=== PATIENT | male | born 2005 ===

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

== ENCOUNTER → 2025-06-22 | Emergency (ER) | payer MEDICAID ==
[~2025-06-22] VITALS: Ht 172.7 cm; Wt 68.0 kg
[~2025-06-22] MED LIST: ACET-6 PO; CEPH500T PO; SODIUM CHLORIDE 0.9% 2,000 ML IV ONE
[2025-06-22 02:32] VITALS: BP 123/73; PULSE 77; RESP 16; TEMP 99.5; O2SAT 99
[2025-06-22 03:38] LABS: Urine Protein, UAD Negative (Negative)
[2025-06-22 03:56] LABS: Amphetamine Screen, Urine Neg (NEGATIVE); Barbiturate Scree,Urine Neg (NEGATIVE); Benzodiazephine Screen, Urine Neg (NEGATIVE); Cannabinoid Screen, Urine Pos (NEGATIVE); Cocaine Screen, Urine Neg (NEGATIVE); Opiate Scree,Urine Neg (NEGATIVE); Phencyclidine Screen, Urine Neg (NEGATIVE)
== END ==
LOC: EDUNIT# 02:27 → EDBD 02:32 → ER 02:32
DX: R51.9 Headache, unspecified (principal); Z53.21 Procedure and treatment not carried out due to patient leaving prior to being seen by health care provider
CPT/HCPCS: 80307; 81003